=== PATIENT | female | born 1995 | race Caucasian/White ===

== ENCOUNTER 2016-08-27 07:42 | Emergency (ER) | payer OTHER ==
[~2016-08-27] VITALS: Ht 175.3 cm; Wt 122.7 kg
[2016-08-27 07:47] VITALS: BP 141/82; PULSE 83; RESP 18; O2SAT 96
--- NOTE | 2016-08-27 07:49 | ED.REPORT ---
HPI-Abd Pain F Under 40 Date of Service Aug 27, 2016 ED Provider: Dr. Connors Pt is a 21 year old female with a history of endometriosis who presents to the ED with concerns for lower abdominal pain that started last night. She states that this pain is severe and radiates to her back. She describes this pain as being distinctly different from her previous abdominal pain, that she has experienced due to her endometriosis. Pt reports mild chest pain, but states that this is always present due to her ongoing anxiety. She reports mild diarrhea and extreme nausea for the past week, but denies any vomiting, hematochezia, dysuria, vaginal pain, or any other symptoms. Pt reports that she is taking control, and has a history of being pre-diabetic, as well as asthmatic. She denies any history of smoking, alcohol use or any other medical concerns. Nursing Notes Stated Complaint: SEVERE ABDOMINAL PAIN Chief Complaint: Female Abdominal Pain Nursing Notes Reviewed: Yes Allergies: Coded Allergies: Penicillins (Verified Allergy, Unknown, 08/27/16) General Time Seen by MD: 07:48 Chief Complaint Abdominal pain Hx Obtained From: Patient Arrived By: Walk-in Sudden in Onset?: Yes Onset Occurred: 9 - 12 hours ago Symptom Duration: Since onset Location: : Abdomen lower Quality: Painful Radiation: : Flank left Severity: Current: Mild Severity: Maximum: Moderate Similar Sx Previous: Yes Past Medical History Past Medical History Endometriosis Pre-diabetic Depression Anxiety Asthma Past Surgical History Laproscopic surgery with lysis of adhesion Smoking History Never Smoker Social History Alcohol Use: Denies alcohol use Drug Use: Denies drug use Ambulatory Status Independent Review of Systems Constitutional: Denies: Chills, Fever, Malaise, Weakness - generalized Respiratory: Denies: Non-productive cough, Shortness of breath, Wheezing Cardiovascular: Denies: Chest pain, Syncope GI: Reports: Abdominal pain, Diarrhea, Nausea, Denies: Constipation, Hematochezia, Vomiting Female: Denies: Dysuria, Flank pain, Hematuria, Pelvic pain, Urinary frequency, Urinary urgency Musculoskeletal: Reports: Back pain, Denies: Extremity pain Complete sys rev & neg: except as marked. Physical Exam Initial Vital Signs Vital Signs (First) Date Time Temp Pulse Resp B/P Pulse Ox O2 Delivery O2 Flow Rate FiO2 08/27/16 07:47 36.8 83 18 141/82 96 Room Air Initial VS: Reviewed Head / Eyes: Atraumatic, Normocephalic, PERRL ENT: Mucous membranes moist, Conjunctiva normal, No scleral icterus Neck: Supple, Non-tender, Full range of motion Skin: Warm, Dry, No cyanosis Neurologic: Alert, Oriented, Nonfocal General/Constitutional: Awake, Alert, Well appearing, Well developed, Well nourished, Cooperative Respiratory / Chest: Atraumatic, Breath sounds NL, Breath sounds = bilat, No respiratory distress Cardiovascular: Regular rhythm, Heart sounds NL, No gallop, No murmurs Heart Rate / Rhythm: Positive: Tachycardia Abdomen: Atraumatic, Soft, No guarding, No rebound Tenderness/Guarding/Rebound: Positive: Tender LLQ... (Moderate) Able to move about the exam table without any extreme discomfort or abdominal guarding Back: Atraumatic, Inspection NL Left CVAT Interpretation & Diagnostics Lab Results Interpretation Result Diagram: 08/27/16 0800 08/27/16 0800 Test 08/27/16 08:00 08/27/16 09:59 White Blood Count 8.4th/mm3 (3.8-10.1) Red Blood Count 4.85mil/mm3 (3.90-5.20) Hemoglobin 11.1g/dL (12.0-15.6) Hematocrit 35.5% (35.0-46.0) Mean Corpuscular Volume 73.2fL (81-100) Mean Corpuscular Hemoglobin 22.9pg (27.0-35.0) Mean Corpuscular Hemoglobin Concent 31.3% (32.0-37.0) Red Cell Distribution Width 15.7% (12.3-15.4) Platelet Count 270bil/L (150-400) Neutrophils (%) (Auto) 56.5% (40-74) Lymphocytes (%) (Auto) 35.6% (14-46) Monocytes (%) (Auto) 6.3% (4-12) Eosinophils (%) (Auto) 1.2% (0-5) Basophils (%) (Auto) 0.2% (0-3) Sodium Level 138mEq/L (134-144) Potassium Level 3.8mEq/L (3.5-5.2) Chloride Level 102mEq/L (97-108) Carbon Dioxide Level 22mmol/L (18-29) Blood Urea Nitrogen 9mg/dL (6-20) Creatinine 0.57mg/dL (0.57-1.00) Estimat Glomerular Filtration Rate 194mL/min (>59) Glucose Level 113mg/dL (60-99) Calcium Level 9.0mg/dL (8.5-10.1) Total Bilirubin 0.2mg/dL (0.0-1.2) Aspartate Amino Transf (AST/SGOT) 13U/L (0-50) Alanine Aminotransferase (ALT/SGPT) 11U/L (0-32) Alkaline Phosphatase 58U/L (25-150) Total Protein 7.4g/dL (6.4-8.4) Albumin 4.3g/dL (3.4-5.0) Lipase 47U/L (13-60) Hold Caldera Top Tube Received (Received) Hold Urine Received (Received) Re-Eval/Medical Decision Source of Hx: Old records Re-Evaluation/Progress : Time of Eval: 11:28 Re-Evaluation/Progress Note: Pt updated of labs. Pt is feeling much better but still has slight pain present. Discussed plan for d/c and f/u. Pt understands and agrees with plan. All questions addressed. Counseled Regarding: Diagnosis, Lab results, Need for follow-up, When/why to return to ED Discharge & Departure Primary Impression: Abdominal pain Abdominal location: lower abdomen Qualified Code: R10.30 - Lower abdominal pain, unspecified Disposition: Home Discharge Condition All VS Reviewed: Yes Condition: Stable Patient Instructions: Acute Abdominal Pain (ED) Additional Instructions: Your work up today was reassuring. There was not dangerous or emergent cause for your pain identified today. Call [facility] tomorrow to schedule an appointment next week. You can take Ondansetron (Zofran) as directed for nausea. You can chart picker Prevacid and Ibuprofen to help with pain. Return to the ER for severe pain, uncontrollable vomiting or for any other concerning symptoms. Scribe Attestation Portions of this note were transcribed by Rosalia Gomez and Maira Gay. I, Dr. Connors personally performed the history, physical exam and medical decision-making; I reviewed and confirmed the accuracy of the information in the transcribed note. Signed by: Rosalia Gomez and Roseanne Esteves, 2016 11:34 copies to: Jenna Velásquez MD, Kirk H MD Aug 27, 2016 07:49 LATANYA GOMEZ Aug 27, 2016 08:02 Maira Gay Aug 27, 2016 11:33 Maira Gay Aug 27, 2016 11:33
[2016-08-27] MEDS ORDERED: 0.9% Sodium Chloride 1,000 ML IV ONE (07:56)
[2016-08-27] MEDS ORDERED: Ondansetron 2 mg/mL 2 mL Inj IVPUSH PRN (08:00)
[2016-08-27] MEDS ORDERED: Pantoprazole 4 mg/mL 10 mL Inj IVPUSH ONE (08:00)
[2016-08-27 08:12] LABS: BASOPHILS % (AUTO) 0.2 % (0-3); EOSINOPHILS % (AUTO) 1.2 % (0-5); MONOCYTES % (AUTO) 6.3 % (4-12); Mean Corpuscular Hemoglobin 22.9 pg (27.0-35.0); Mean Corpuscular Volume 73.2 fL (81-100); NEUTROPHILS % (AUTO) 56.5 % (40-74); Platelet Count 270 bil/L (150-400)
[2016-08-27] MEDS ORDERED: ONDA4TAB9 PO (11:37)
== END 2016-08-27 11:44 | disposition home or self-care (01) ==
LOC: SED 07:42
DX: R10.30 Lower abdominal pain, unspecified (principal); J45.909 Unspecified asthma, uncomplicated; R73.09 Other abnormal glucose; Z87.42 Personal history of other diseases of the female genital tract; Z79.3 Long term (current) use of hormonal contraceptives; Z88.0 Allergy status to penicillin; R73.03 Prediabetes
CPT/HCPCS: 36415; 80053; 81025; 83690; 85025; 96361; 96374; 96375; 99284; J1885; J2405; J7030

== ENCOUNTER 2016-11-08 13:19 | Emergency (ER) | payer OTHER ==
[~2016-11-08] VITALS: Ht 175.3 cm; Wt 125.0 kg
[~2016-11-08 13:19] MED LIST: ONDA4TAB9 PO
[2016-11-08 13:21] VITALS: BP 134/86; PULSE 100; RESP 15; O2SAT 97
--- NOTE | 2016-11-08 13:26 | ED.REPORT ---
HPI-Dental/Mouth Prob Date of Service Nov 08, 2016 ED Provider: Blayne Soria MD Patient is a 21 year old female who presents to the ED complaining of right lower tooth and jaw pain onset one week ago. Associated symptoms include some trouble swallowing secondary to pain. She denies fever, abdominal pain, nausea, vomiting, drooling, or any other symptoms. Nursing Notes Stated Complaint: JAW PAIN Chief Complaint: Dental Nursing Notes Reviewed: Yes Allergies: Coded Allergies: Penicillins (Verified Allergy, Intermediate, Rash, 11/08/16) Scheduled Clindamycin (Clindamycin) 300 Mg Capsule 300 MG PO QID Scheduled PRN Hydrocodone-Acetaminophen 5-325 mg (Hydrocodone-Acetaminophen 5-325 mg) 1 Each Tablet 1 TABLET PO Q4H PRN PRN For Pain Ibuprofen (Ibuprofen) 800 Mg Tablet 800 MG PO TID PRN PRN For Pain Ondansetron ODT (Zofran ODT) 4 Mg Tablet 4 MG PO Q4H PRN PRN For Nausea General Time Seen by MD: 13:24 Chief Complaint Other (Jaw pain) Hx Obtained From: Patient Arrived By: Walk-in Onset Occurred: 1 week ago Symptom Duration: Since onset Past Medical History Past Medical History Endometriosis Pre-diabetic Depression Anxiety Asthma Past Surgical History Laproscopic surgery with lysis of adhesion Smoking History Never Smoker Social History Alcohol Use: Denies alcohol use Drug Use: Denies drug use Ambulatory Status Independent Review of Systems Review of Systems Note: +jaw pain, mild trouble swallowing (secondary to pain) -drooling Constitutional: Denies: Fever Ears / Nose / Throat: Reports: Toothache GI: Denies: Abdominal pain, Nausea, Vomiting Complete sys rev & neg: except as marked. Physical Exam Initial Vital Signs Vital Signs (First) Date Time Temp Pulse Resp B/P Pulse Ox O2 Delivery O2 Flow Rate FiO2 11/08/16 13:21 36.9 100 15 134/86 97 General/Constitutional: Well-developed, Well-nourished Head / Eyes: Atraumatic, Normocephalic Respiratory: Breath sounds normal, Clear to auscultation, No respiratory distress Cardiovascular: Regular rate & rhythm Abdomen / GI: Soft, Non-tender Skin: Warm, Dry Neurologic: Alert, Oriented, Nonfocal Psychiatric: Mood/affect normal, Behavior normal, Normal thought content ENT: Airway patent, No pooling of secretions, No facial swelling No submandibular tenderness. Poor dentition numerous caries tenderness to R lower molar and R lower middle teeth (diffuse) no abscess, erythema, or fluctuance Neck: No swelling Re-Eval/Medical Decision Med Decision/Clinical Course Treatment with clindamycin due to penicillin allergy for possible developing dental infection. Recommend follow-up with dentist. Gave a list of local dentists. Return precautions. Re-Evaluation/Progress : Time of Eval: 13:31 Re-Evaluation/Progress Note: Discussed plan for discharge. Patient understands and agrees with plan. All questions addressed at this time. Counseled Regarding: Diagnosis, Need for follow-up, When/why to return to ED Discharge & Departure Primary Impression: Dental infection Disposition: Home Discharge Condition All VS Reviewed: Yes Condition: Stable Additional Instructions: Thank you for entrusting us with your care. Take the antibiotic as directed to treat your dental infection. Take the narcotic as directed if needed for pain management. Do not drive, drink alcohol , or take acetaminophen while taking narcotics. Follow up with a dentist as soon as possible. Return to the emergency department if you develop high fevers, vomiting, trouble swallowing, or any other new or worsening symptoms. Referrals: NOPCP (PCP) Scribe Attestation Portions of this note were transcribed by Destinee Starr. I, Dr. Soria personally performed the history, physical exam and medical decision-making; I reviewed and confirmed the accuracy of the information in the transcribed note. Signed by: Destinee Starr 11/08/16, 1336 Blayne Soria MD Nov 08, 2016 13:26 DESTINEE STARR Nov 08, 2016 13:33
[2016-11-08] MEDS ORDERED: CLIN-78 PO (13:35)
[2016-11-08] MEDS ORDERED: HYDR-4003 PO (13:35)
[2016-11-08] MEDS ORDERED: IBUP800T28 PO (13:35)
[2016-11-08] MEDS ORDERED: HYDROcodone-APAP 5-325 mg Tablet PO ONE (13:45)
== END 2016-11-08 13:56 | disposition home or self-care (01) ==
LOC: SED 13:19
DX: K04.7 Periapical abscess without sinus (principal); J45.909 Unspecified asthma, uncomplicated; Z88.0 Allergy status to penicillin

== ENCOUNTER 2016-12-03 00:23 | Emergency (ER) | payer OTHER ==
[~2016-12-03] VITALS: Ht 175.3 cm; Wt 127.3 kg
[~2016-12-03 00:23] MED LIST changes: +CLIN-78 PO; +HYDR-4003 PO; +IBUP800T28 PO
[2016-12-03 00:25] VITALS: BP 147/87; PULSE 84; RESP 20; O2SAT 97
[2016-12-03] MEDS ORDERED: _Azithromycin 250 mg Tablet PO SCH (01:00)
[2016-12-03] MEDS ORDERED: predniSONE 20 mg Tablet PO ONE (01:00)
--- NOTE | 2016-12-03 01:00 | ED.REPORT ---
HPI-URI / Cough / Cold Date of Service December 03, 2016 ED Provider: Sly Jackson MD A 21 year old female with a history of asthma presents to the ED accompanied by her fiance reporting intermittent cough onset two weeks ago. Associated symptoms include rhinorrhea and dizziness. Her symptoms are exacerbated by laying flat. The patient has been using her inhaler with no relief. She denies other symptoms. The patient was recently placed on antibiotic drops for an ear infection. She has had similar symptoms in the past. Nursing Notes Stated Complaint: COUGH Chief Complaint: FLU/Cold Symptoms Nursing Notes Reviewed: Yes Allergies: Coded Allergies: Penicillins (Verified Allergy, Intermediate, Rash, 12/03/16) Scheduled Benzonatate (Benzonatate) 200 Mg Capsule 200 MG PO TID Clindamycin (Clindamycin) 300 Mg Capsule 300 MG PO QID Prednisone (PredniSONE) 20 Mg Tablet 20 MG PO TID Scheduled PRN Hydrocodone-Acetaminophen 5-325 mg (Hydrocodone-Acetaminophen 5-325 mg) 1 Each Tablet 1 TABLET PO Q4H PRN PRN For Pain Ibuprofen (Ibuprofen) 800 Mg Tablet 800 MG PO TID PRN PRN For Pain Ondansetron ODT (Zofran ODT) 4 Mg Tablet 4 MG PO Q4H PRN PRN For Nausea General Time Seen by MD: 00:42 Chief Complaint Cough, non-productive Hx Obtained From: Patient Arrived By: Walk-in Onset Occurred: More than a week ago... (2 weeks) Symptom Duration: Intermittent Severity: Current: No pain currently Severity: Maximum: No pain Pertinent Negative: Relieved by nothing Related History: Reports: Asthma Context: Immunization Status General: Unknown Recent Healthcare: No recent doctor visit Similar Sx Previous: Yes Past Medical History Past Medical History Endometriosis PCOS Pre-diabetic Depression Anxiety Asthma Past Surgical History Laproscopic surgery with lysis of adhesion Smoking History Never Smoker Social History Alcohol Use: Denies alcohol use Drug Use: Denies drug use Other Social History: Good social support Ambulatory Status Independent Review of Systems Constitutional: Denies: Fever Respiratory: Reports: Non-productive cough, Denies: Shortness of breath GI: Denies: Diarrhea, Vomiting Allergy / Immune: Reports: Rhinorrhea Neurologic: Reports: Dizziness Complete sys rev & neg: except as marked. Physical Exam Initial Vital Signs Vital Signs (First) Date Time Temp Pulse Resp B/P Pulse Ox O2 Delivery O2 Flow Rate FiO2 12/03/16 00:25 36.0 84 20 147/87 97 Room Air Initial VS: Reviewed, Vital signs normal Head / Eyes: Atraumatic, Normocephalic Cardiovascular: Regular rate & rhythm, Heart sounds normal, Intact distal pulses Skin: Warm, Dry, No cyanosis Neurologic: Alert, Oriented, Nonfocal Psychiatric: Mood/affect normal, Behavior normal, Normal thought content General/Constitutional: Awake, Alert ENT: Airway patent, Mucous membranes moist, Mastoid area NL Right Ear / Mastoid: Positive: Tympanic memb retracted, Tympanic membrane red Right TM dull Left TM normal Hoarse voice Respiratory / Chest: Breath sounds NL, Breath sounds = bilat, No respiratory distress, No wheezing Constant cough Neck: Supple, Full range of motion, No adenopathy Re-Eval/Medical Decision Med Decision/Clinical Course 21-year-old female with upper restaurant symptoms and cough. She has a right otitis media. No evidence of pneumonia on physical examination or history. She was given azithromycin (penicillin allergy) and benzonatate for her cough. Source of Hx: Old records Re-Evaluation/Progress : Time of Eval: 01:10 Patient Status: Condition improved Re-Evaluation/Progress Note: Discussed with patient physical exam findings, diagnosis, and plan for discharge. Follow-up and return to the ER instructions given. Patient agrees with plan for care and all questions were addressed. Counseled Regarding: Diagnosis, Need for follow-up, When/why to return to ED Discharge & Departure Impression: Primary Impression: Bronchitis Additional Impression: Right otitis media Otitis media type: suppurative Chronicity: acute Recurrence: not specified as recurrent Spontaneous tympanic membrane rupture: without spontaneous rupture Qualified Code: H66.001 - Acute suppurative otitis media without spontaneous rupture of ear drum, right ear Disposition: Home Discharge Condition All VS Reviewed: Yes Condition: Improved Patient Instructions: Acute Bronchitis (ED), Otitis Media (ED) Additional Instructions: Thank you for entrusting us with your care. Azithromycin 250 mg, 2 pills now then 1 pill daily, #6 dispensed. Benzonatate (Tessalon perles) 200 mg, 1 capsule 3 times a day as needed for cough, #15 prescribed. Prednisone 20 mg by mouth 3 times a day for 3 days, #9 prescribed. Call your primary care provider or the referred clinic tomorrow for a follow-up appointment. Return to the ER with any new or worsening symptoms. Referrals: NOPCP (PCP) [facility] Scribe Attestation Portions of this note were transcribed by Iris Negrete. I, Dr. Jackson, personally performed the history, physical exam, and medical decision-making; I reviewed and confirmed the accuracy of the information in the transcribed note. Signed by: Roseanne Gray, 12/03/2016, 02:40 copies to: [facility] Sly Jackson MD December 03, 2016 00:59 IRIS NEGRETE December 03, 2016 01:12
[2016-12-03] MEDS ORDERED: BENZ200C44 PO (01:34)
[2016-12-03] MEDS ORDERED: PRE20 PO (01:34)
[2016-12-03 01:44] VITALS: BP 123/75; PULSE 79; RESP 16; O2SAT 98
== END 2016-12-03 01:50 | disposition home or self-care (01) ==
LOC: SED 00:23
DX: J40 Bronchitis, not specified as acute or chronic (principal); H66.001 Acute suppurative otitis media without spontaneous rupture of ear drum, right ear; E28.2 Polycystic ovarian syndrome; Z87.42 Personal history of other diseases of the female genital tract; Z79.3 Long term (current) use of hormonal contraceptives; Z88.0 Allergy status to penicillin

== ENCOUNTER 2016-12-18 23:03 | Emergency (ER) | payer OTHER ==
[~2016-12-18] VITALS: Ht 175.3 cm; Wt 127.3 kg
[~2016-12-18 23:03] MED LIST changes: +BENZ200C44 PO; +PRE20 PO
[2016-12-18 23:04] VITALS: BP 143/93; PULSE 123; RESP 16; O2SAT 97
--- NOTE | 2016-12-18 23:39 | ED.REPORT ---
HPI-Rash / Abscess Date of Service Dec 18, 2016 ED Provider: Dr. Sly Jackson MD A 21 year old female with a history of endometriosis, PCOS and pre-diabetes presents to the ED with an infected pilonidal cyst that became increasingly painful 2 days ago. Patient has had the cyst for the majority of her life and her mother has previously been able to drain it. She presents to the ED this evening because of worsening pain and swelling that is exacerbated by sitting. Patient denies fever. Nursing Notes Stated Complaint: BACK PAIN Chief Complaint: General Complaint Nursing Notes Reviewed: Yes Allergies: Coded Allergies: Penicillins (Verified Allergy, Intermediate, Rash, 12/18/16) Scheduled Benzonatate (Benzonatate) 200 Mg Capsule 200 MG PO TID Clindamycin (Clindamycin) 300 Mg Capsule 300 MG PO QID Prednisone (PredniSONE) 20 Mg Tablet 20 MG PO TID Scheduled PRN Hydrocodone-Acetaminophen 5-325 mg (Hydrocodone-Acetaminophen 5-325 mg) 1 Each Tablet 1 TABLET PO Q4H PRN PRN For Pain Ibuprofen (Ibuprofen) 800 Mg Tablet 800 MG PO TID PRN PRN For Pain Ondansetron ODT (Zofran ODT) 4 Mg Tablet 4 MG PO Q4H PRN PRN For Nausea General Time Seen by MD: 23:38 Chief Complaint Abscess (infected pilonidal cyst) Hx Obtained From: Patient Arrived By: Walk-in Onset Occurred: 2 days ago Symptom Duration: Since onset Location: : Back: Buttock Quality: Painful Severity: Current: Mild Severity: Maximum: Mild Associated with: Denies Fever Pertinent Negative: Pt denies other symptoms Recent Healthcare: No recent doctor visit, No recent hospitalization Past Medical History Past Medical History Endometriosis PCOS Pre-diabetic Depression Anxiety Asthma Past Surgical History Laproscopic surgery with lysis of adhesion Smoking History Never Smoker Social History Alcohol Use: Denies alcohol use Drug Use: Denies drug use Other Social History: Good social support, Local resident Ambulatory Status Independent Review of Systems Constitutional: Denies: Chills, Fever Musculoskeletal: Reports: Back pain (secondary to abscess) Skin: Reports Rash (Abscess to lower back ), Reports Swelling (Abscess to lower back ) Complete sys rev & neg: except as marked. Physical Exam Initial Vital Signs Vital Signs (First) Date Time Temp Pulse Resp B/P Pulse Ox O2 Delivery O2 Flow Rate FiO2 12/18/16 23:04 123 16 143/93 97 Room Air Initial VS: Reviewed, Vital signs abnormal Neck: Supple, Non-tender, Full range of motion Neurologic: Alert, Oriented, Nonfocal Psychiatric: Mood/affect normal, Behavior normal, Normal thought content General/Constitutional: Awake, Alert, Well developed Skin: Atraumatic, Warm, Dry Abscess Notes: Stefan cleft - small superficial pustule with deeper fluid collection in the cyst Abscess #1 Location/Condition: Positive: Large, Pilonidal..., Purulent discharge Head / Eyes: Atraumatic, Normocephalic, PERRL Respiratory / Chest: Atraumatic, Breath sounds NL, Breath sounds = bilat, No respiratory distress Cardiovascular: Heart rate NL, Regular rhythm, Heart sounds NL Upper Extremity / MS: Atraumatic, Neurologic intact, Vascular intact Lower Extremity / Pelvis / MS: Atraumatic, Neurologic intact, Vascular intact Procedures Incision & Drainage Abscess Time: 00:17 Procedure Performed by: ED physician Consent / Setup / Site Prep: Consent from patient, Time-out performed, Hand hygiene observed, Stand sterile technique, Standard surgical scrub, Sterile drapes applied Skin Preparation Agent: Shurclens Local Anesthesia: Lidocaine w epi 1% (6 cc) Incised Abscess with Scalpel: #11 Pus Drained: Large, Purulent discharge Post-Procedure / Complications: Packing placed, Culture obtained, Dressing applied, No complications, Condition improved, Tolerated procedure well, Patient stable Re-Eval/Medical Decision Med Decision/Clinical Course Pilonidal cyst with mild abscess formation. There is no surrounding cellulitis. The cyst was drained and a wick was placed. Follow-up in 2-3 days for further evaluation and treatment. Antibiotic treatment was not initiated in this case. Re-Evaluation/Progress #1: Time of Eval: 00:17 Patient Status: Condition improved Re-Evaluation/Progress Note: Abscess I&D performed. Patient tolerates the procedure well. She agrees to a follow up appointment next week. Re-Evaluation/Progress #2: Time of Eval: 00:33 Patient Status: Condition improved Re-Evaluation/Progress Note: Her pain has improved she is comfotable with the treatment plan. Counseled Regarding: Diagnosis, Need for follow-up, When/why to return to ED Discharge & Departure Impression: Primary Impression: Pilonidal cyst with abscess Disposition: Home Discharge Condition All VS Reviewed: Yes Condition: Improved Patient Instructions: Abscess (ED), Pilonidal Cyst (ED) Additional Instructions: The cyst was drained and a gauze wick was placed. Remove the wick in 2 days. See your regular doctor in 3 days, on Wednesday. There is no significant surrounding infection so you do not need an oral antibiotic. Drainage of the cyst should be enough. Talk to your regular doctor about getting the cyst completely removed once the infection is gone. Call me at [phone] between the hours of 9 PM and 6 AM for the next couple nights if you have any questions or concerns. Referrals: NOPCP (PCP) Scribe Attestation Portions of this note were transcribed by Gonzalez Ellington. I, Dr. Jackson personally performed the history, physical exam and medical decision-making; I reviewed and confirmed the accuracy of the information in the transcribed note. Signed by: Roseanne Slaughter, 12/19/16 0053. Sly Jackson MD Dec 18, 2016 23:39 GONZALEZ ELLINGTON Dec 18, 2016 23:44
[2016-12-19 00:55] VITALS: BP 123/93; PULSE 101; RESP 16; O2SAT 98
== END 2016-12-19 00:56 | disposition home or self-care (01) ==
LOC: SED 23:03
DX: L05.01 Pilonidal cyst with abscess (principal); E28.2 Polycystic ovarian syndrome; J45.909 Unspecified asthma, uncomplicated; Z87.42 Personal history of other diseases of the female genital tract; Z79.52 Long term (current) use of systemic steroids; Z88.0 Allergy status to penicillin